=== PATIENT | female | born 1935 | race Caucasian/White ===

== ENCOUNTER 2019-02-22 00:01 | Emergency (ER) | payer OTHER ==
[~2019-02-22] VITALS: Ht 152.4 cm; Wt 49.9 kg
[~2019-02-22 00:01] MED LIST: CIPRO500 MG PO; FOLIC ACID1 MG; INTESTINEX1 CAP PO; LOTRISONE CREAM45 GM TP; PROTONIX40 MG PO; SIMVASTATIN20 MG
[2019-02-22] MEDS ORDERED: PEPCID AC20 MG PO (03:13)
[2019-02-22] MEDS ORDERED: ONDANSETRON ODT4 MG SL (03:13)
== END 2019-02-22 03:59 | disposition home or self-care (01) ==
LOC: ER 00:01
DX: K29.60 Other gastritis without bleeding (principal); R53.1 Weakness; T44.1X5A Adverse effect of other parasympathomimetics [cholinergics], initial encounter; Y92.89 Other specified places as the place of occurrence of the external cause